=== PATIENT | female | born 1990 | race Caucasian/White ===

== ENCOUNTER 2018-07-01 05:15 | Emergency (ER) | payer MEDICAID ==
[~2018-07-01] VITALS: Ht 167.6 cm; Wt 117.9 kg
--- NOTE | 2018-07-01 05:15 | NUR ---
VAL MCKEON, PREBOOK. TAKEN TO CHAIR E
[2018-07-01 05:19] VITALS: BP 131/80
--- NOTE | 2018-07-01 05:45 | NUR ---
Dr. Castaneda evaluating patient
--- NOTE | 2018-07-01 05:47 | NUR ---
PT MOVED TO BED 10
[2018-07-01] MEDS ORDERED: LIDOCAINE 1% 500 MG/50 ML VIAL INJ SCH (05:50)
--- NOTE | 2018-07-01 06:28 | NUR ---
DR PALACIOS AT BEDSIDE FOR PROCEDURE.
[2018-07-01] MEDS ORDERED: IBUPROFEN 800 MG TAB PO ONE (06:40)
[2018-07-01 06:59] VITALS: BP 145/76
--- NOTE | 2018-07-01 06:59 | NUR ---
Patient discharged with v/s stable. Written and verbal after care instructions given and explained. Patient alert, oriented and verbalized understanding of instructions.[employer] Police with in custody. All questions addressed prior to discharge. ID band removed. Patient advised to follow up with PMD. Rx of BACTRIM, KEFLEX, MOTRIN given. Patient educated on indication of medication including possible reaction and side effects. Opportunity to ask questions provided and answered.
== END 2018-07-01 06:59 ==
LOC: MED 05:15
DX: L02.413 Cutaneous abscess of right upper limb (principal); K21.9 Gastro-esophageal reflux disease without esophagitis; Z02.89 Encounter for other administrative examinations
CPT/HCPCS: 10060; 90471; 90715; 99283; J2001